=== PATIENT | female | born 1980 ===

== ENCOUNTER 2017-04-12 10:18 | Emergency (ER) | payer OTHER ==
[2017-04-12 10:21] VITALS: BMI 23.4
[2017-04-12 10:23] VITALS: RESP 17; TEMP 98.6; O2SAT 99
--- NOTE | 2017-04-12 10:36 | ED PDOC ---
HPI: Female Pain Time Seen by Provider: 04/12/17 10:34 Chief Complaint (Nursing): Female Genitourinary Chief Complaint (Provider): vaginal pain History Per: Patient Additional Complaint(s): 37 year old female presents to ED with painful cyst to vaginal region x 1 week. Patient was seen at [facility] 4 days ago and was started on ampicillin but symptoms have not improved. Patient denies fever or chills. She has had mild drainage from affected area. Ibuprofen has not helped the pain. Patient has history of bartholin's abscess and has had I&D in the past. Past Medical History Reviewed: Historical Data, Nursing Documentation, Vital Signs Vital Signs: Last Vital Signs Temp 98.6 F 04/12/17 10:20 Pulse 86 04/12/17 10:20 Resp 17 04/12/17 10:20 BP 132/73 04/12/17 10:20 Pulse Ox 99 04/12/17 10:20 - Medical History PMH: No Chronic Diseases - Surgical History Other surgeries: bartholin's cyst marsupialization - Family History Family History: States: No Known Family Hx - Living Arrangements Living Arrangements: With Family - Social History Current smoker - smoking cessation education provided: No Alcohol: None Drugs: Denies - Home Medications Home Medications: Ambulatory Orders Medication Instructions Recorded Metronidazole [Flagyl] 500 mg PO TID #30 tab 04/12/17 traMADol [Ultram] 50 mg PO TID PRN #15 tab 04/12/17 - Allergies Allergies/Adverse Reactions: Allergies Allergy/AdvReac Type Severity Reaction Status Date / Time No Known Allergies Allergy Verified 04/12/17 10:33 Review of Systems ROS Statement: Except As Marked, All Systems Reviewed And Found Negative Constitutional: Negative for: Fever Gastrointestinal: Negative for: Abdominal Pain Genitourinary Female: Positive for: Other (bartholin's abscess). Negative for: Dysuria, Vaginal Discharge, Vaginal Bleeding Physical Exam - Reviewed Nursing Documentation Reviewed: Yes Vital Signs Reviewed: Yes - Physical Exam Appears: Positive for: Well, Non-toxic, No Acute Distress Skin: Negative for: Rash Eye Exam: Positive for: Normal appearance Pelvic Exam: Positive for: Other (bartholin's abscess noted to right vulva, moderate erythema and tenderness to palpation with no active bleeding or drainage) Extremity: Positive for: Normal ROM Neurologic/Psych: Positive for: Alert, Oriented - Laboratory Results Urine POC: Negative Urine dip results: Positive for: Blood (small). Negative for: Leukocyte Esterase, Nitrate, Ketones, Glucose, Bilirubin, Protein - ECG O2 Sat by Pulse Oximetry: 99 Pulse Ox Interpretation: Normal Medical Decision Making Medical Decision Making: Impression: Bartholin's abscess Case was d/w time study statistician provider relations coordinator, Dr. De Los Santos who will come to ED for I&D. I&D performed at bedside by Dr. De Los Santos and word catheter was inserted. As per Dr. De Los Santos, patient should keep word catheter in place for 4-[address] De Los Santos. patient was given rx flagyl and instructed to stop taking ampicillin. Rx tramadol given for pain. Patient was instructed to follow up at her clinic. Disposition - Clinical Impression Clinical Impression: Bartholin's gland abscess - Patient ED Disposition Is Patient to be Admitted: No Counseled Patient/Family Regarding: Diagnosis, Need For Followup, Rx Given - Disposition Referrals: [facility] [Outside] Disposition: Routine/Home Disposition Time: 13:16 Condition: STABLE Additional Instructions: Stop taking ampicillin and continue your antibiotics. Take prescription pain medicines as directed. Follow up in 4-6 weeks with [facility]. Do not have catheter removed before 4-6 weeks. Prescriptions: Metronidazole [Flagyl] 500 mg PO TID #30 tab traMADol [Ultram] 50 mg PO TID PRN #15 tab PRN Reason: Pain, Moderate (4-7) Instructions: Bartholin Cyst (ED), Incision and Drainage (ED) Forms: [employer] (Albanian) Print Language: CENTRAL AFRICAN
[2017-04-12] MEDS ORDERED: Lidocaine 1% w Epi 1:100,000 Inj INJ STA (10:57)
[2017-04-12] MEDS ORDERED: Lidocaine 1% Inj (20ml) IJ STA (11:22)
[2017-04-12] MEDS ORDERED: Lidocaine 1% Inj (20ml) ONE (11:22)
[2017-04-12] MEDS ORDERED: Povidone Iodine Topical 10% Sol ONE (11:26)
[2017-04-12 13:48] VITALS: BP 109/68; PULSE 81
--- NOTE | 2017-04-12 16:49 | CP.PCM.CON ---
History of Present Illness - History of Present Illness History of Present Illness: patient is a 37-year-old 1 para 1 with an LMP of 03/19/2017 who presents to the emergency departme with complaints of right-sided labial pain and increased swelling. Patient states she presented last week to her [facility] [place] with complaints of labial swelling and it was incised and drained she stated she received the swelling increased further inside than prior with further pain when she presented to the office for further evaluation they advised her further management. She denies prior episodes of labial swelling or infections. Past OB history: delivery 1 at term past medical history denies Past surgical history denies Medications: Oral contraceptive patient unsure of name: Ampicillin 500 mg by mouth twice a day which; ibuprofen 600 one by mouth every 6 Social history patient denies tobacco alcohol or illicit drug abuse. Review of Systems - Constitutional Constitutional: absent: Excessive Sweating, Fatigue, Fever, Headache - Cardiovascular Cardiovascular: absent: Chest Pain, Dyspnea - Respiratory Respiratory: absent: Dyspnea on Exertion - Gastrointestinal Gastrointestinal: absent: Abdominal Pain, Bloating - Reproductive: Female Reproductive:Female: absent: Cycle Variable Past Patient History - Past Social History Alcohol: None Drugs: Denies - PSYCHIATRIC Hx Substance Use: No - SURGICAL HISTORY Hx Surgeries: Yes Hx Section: Yes - ANESTHESIA Hx Anesthesia: Yes Hx Anesthesia Reactions: No Meds Home Medications: Home Medication List Medication Instructions Recorded Confirmed Type Metronidazole [Flagyl] 500 mg PO TID #30 tab 04/12/17 Rx traMADol [Ultram] 50 mg PO TID PRN #15 tab 04/12/17 Rx Allergies/Adverse Reactions: Allergies Allergy/AdvReac Type Severity Reaction Status Date / Time No Known Allergies Allergy Verified 04/12/17 10:33 Physical Exam - Head Exam Head Exam: ATRAUMATIC, NORMOCEPHALIC - Respiratory Exam Respiratory Exam: NORMAL BREATHING PATTERN - Cardiovascular Exam Cardiovascular Exam: REGULAR RHYTHM - GI/Abdominal Exam GI & Abdominal Exam: Normal Bowel Sounds. absent: Distended, Guarding, Rebound - Exam External exam: Swelling (Rt labial swelling, induration and fluctuance) Results - Vital Signs Recent Vital Signs: Last Vital Signs Temp 98.6 F 04/12/17 10:20 Pulse 81 04/12/17 13:46 Resp 17 04/12/17 10:20 BP 109/68 04/12/17 13:46 Pulse Ox 99 10/19/17 13:26 Assessment & Plan - Assessment and Plan (Free Text) Assessment: I: Right Bartholin's abscess P: Informed consent was obtained for incision and drainage and placement of Word Patient was prepped and draped in the routine sterile fa and 3 mL of 1% local local lidocaine were inj posterior area of the labia minora Bartholin's abscess. The incision was then made with an 11 blade. In a yellow greenish purulent foul-sme pus was expressed full no further pus could be expressed this was followed by placement of the INFLATED WITH % ML of normal saline Patient was advised to do sitz bath 3 times a day. Follow up in her clinic 4-6 weeks.f Patient advised optimal removal would be in 6 weeks. Patient advised to f/u in office or return to ED if she develops fever, pain or increase in size occurs.
== END 2017-04-12 13:43 | disposition home or self-care (01) ==
LOC: H.ER 10:18
DX: N75.1 Abscess of Bartholin's gland (principal)

== ENCOUNTER 2017-05-24 09:20 | Emergency (ER) | payer OTHER ==
[2017-05-24 09:23] VITALS: BMI 25.2
[2017-05-24 09:24] VITALS: BP 111/69; PULSE 78; RESP 20; TEMP 96.4
[2017-05-24 09:53] VITALS: O2SAT 98
--- NOTE | 2017-05-24 09:58 | ED PDOC ---
HPI: General Adult Time Seen by Provider: 05/24/17 09:48 History Per: Patient (s/p I&D bartholin abscess 6 weeks ago with placement of [place] Cath for removal today.) Past Medical History Vital Signs: Last Vital Signs Temp 96.4 F L 05/24/17 09:24 Pulse 78 05/24/17 09:24 Resp 20 05/24/17 09:24 BP 111/69 05/24/17 09:24 Pulse Ox 98 05/24/17 09:48 - Medical History PMH: No Chronic Diseases - Family History Family History: States: Unknown Family Hx - Home Medications Home Medications: Ambulatory Orders Medication Instructions Recorded Metronidazole [Flagyl] 500 mg PO TID #30 tab 04/12/17 traMADol [Ultram] 50 mg PO TID PRN #15 tab 04/12/17 - Allergies Allergies/Adverse Reactions: Allergies Allergy/AdvReac Type Severity Reaction Status Date / Time No Known Allergies Allergy Verified 05/24/17 09:48 Review of Systems Constitutional: Negative for: Fever Gastrointestinal: Negative for: Abdominal Pain Genitourinary Female: Negative for: Vaginal Discharge, Vaginal Bleeding, Pelvic Pain Physical Exam - Physical Exam Appears: Positive for: Non-toxic, No Acute Distress Pelvic Exam: Positive for: Other (Catheter in place, remived, no bleeding or drainage.) - ECG O2 Sat by Pulse Oximetry: 98 Disposition - Clinical Impression Clinical Impression: Wound check, abscess - Patient ED Disposition Is Patient to be Admitted: No Counseled Patient/Family Regarding: Diagnosis, Need For Followup - Disposition [facility]errals[facility] [Outside] Disposition: Routine/Home Disposition Time: 09:58 Condition: FAIR Instructions: Chronic Wound Care (ED) Print Language: PITCAIRN ISLANDER
== END 2017-05-24 10:08 | disposition home or self-care (01) ==
LOC: H.ER 09:20
DX: Z46.6 Encounter for fitting and adjustment of urinary device (principal)

== ENCOUNTER 2017-09-17 09:04 | Emergency (ER) | payer SELFPAY ==
[2017-09-17 09:05] VITALS: BMI 25.2
[2017-09-17 09:09] VITALS: BP 121/81; PULSE 75; RESP 17; TEMP 98.8; O2SAT 99
[2017-09-17 12:26] LABS: SQUAMOUS EPITHIAL 5 /hpf (0-5); URINE BACTERIA RARE (<OCC); URINE BILIRUBIN NEGATIVE (NEGATIVE); URINE BLOOD NEGATIVE (NEGATIVE); URINE CLARITY SLIGHTY-CLOUDY (Clear); URINE COLOR YELLOW (YELLOW); URINE GLUCOSE (UA) NEG (Normal); URINE LEUKOCYTE ESTERASE NEG Leu/uL (Negative); URINE PROTEIN NEGATIVE (NEGATIVE); URINE UROBILINOGEN 0.2-1.0 mg/dL (0.2-1.0)
--- NOTE | 2017-09-17 12:57 | ED PDOC ---
HPI: Female Pain Time Seen by Provider: 09/17/17 09:23 Chief Complaint (Nursing): Female Genitourinary Chief Complaint (Provider): Female Genitourinary History Per: Patient History/Exam Limitations: no limitations Additional Complaint(s): 37 y/o female with past medical history of barthollin cyst presents to the ED complaining of vaginal pain and swelling since Sunday. Reports that she noted a lump to right labia on Sunday. Denies fever, vomiting or any further medical complaints. Past Medical History Reviewed: Historical Data, Nursing Documentation, Vital Signs Vital Signs: Last Vital Signs Temp 98.8 F 09/17/17 09:07 Pulse 75 09/17/17 09:07 Resp 17 09/17/17 09:07 BP 121/81 09/17/17 09:07 Pulse Ox 99 09/17/17 09:07 - Medical History Other PMH: Barthollin cyst - Surgical History Surgical History: - Family History Family History: States: Unknown Family Hx - Social History Current smoker - smoking cessation education provided: No Alcohol: None Drugs: Denies - Home Medications Home Medications: Ambulatory Orders Medication Instructions Recorded No Known Home Med 09/17/17 - Allergies Allergies/Adverse Reactions: Allergies Allergy/AdvReac Type Severity Reaction Status Date / Time No Known Allergies Allergy Verified 09/17/17 09:34 Review of Systems ROS Statement: Except As Marked, All Systems Reviewed And Found Negative (As per HPI, otherwise negative) Constitutional: Negative for: Fever Gastrointestinal: Negative for: Vomiting Genitourinary Female: Positive for: Other (Vaginal pain and swelling) Physical Exam - Reviewed Nursing Documentation Reviewed: Yes Vital Signs Reviewed: Yes - Physical Exam Appears: Positive for: Non-toxic, No Acute Distress Head Exam: Positive for: ATRAUMATIC, NORMAL INSPECTION, NORMOCEPHALIC Skin: Positive for: Normal Color, Warm, Dry Eye Exam: Positive for: EOMI, Normal appearance, PERRL ENT: Positive for: Normal ENT Inspection Neck: Positive for: Normal, Painless ROM, Supple Cardiovascular/Chest: Positive for: Regular Rate, Rhythm. Negative for: Murmur Respiratory: Positive for: Normal Breath Sounds. Negative for: Accessory Muscle Use, Respiratory Distress Gastrointestinal/Abdominal: Positive for: Normal Exam, Bowel Sounds, Soft. Negative for: Tenderness Back: Positive for: Normal Inspection Extremity: Positive for: Normal ROM. 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 Moreno (honing machine try out setter roofing subcontractor) was called for consult on barthollin cyst 14:00 --Dr. Moreno called back and will come down to see patient at some point. 14:40 --Dr. Moreno currently at bedside. Scribe Attestation: Documented by Jaquelin Jeffries acting as a scribe for Kena Begum MD. Scribe Attestation: All medical record entries made by the Scribe were at my direction and personally dictated by me. I have reviewed the chart and agree that the record accurately reflects my personal performance of the history, physical exam, medical decision making, and the department course for this patient. I have also personally directed, reviewed, and agree with the discharge instructions and disposition. Disposition - Disposition Forms: [employer] (Chilean)
--- NOTE | 2017-09-17 16:29 | CP.PCM.CON ---
History of Present Illness - History of Present Illness History of Present Illness: Patient is a 37 yo presents with recurrence of possible Bartholian cyst. Patient reports for past 5 days the right vaginal cyst has been getting bigger and starting to become more uncomfortable, does not appreciate any vaginal drainage, no bleeding, does not want pain medication, denies fever, LOC, difficulty breathing. Patient has had Bartholian cyst multiple time in that spot and it has been drained at least four times. Review of Systems - Respiratory Respiratory: As Per HPI - Gastrointestinal Gastrointestinal: As Per HPI - Genitourinary Genitourinary: As Per HPI - Reproductive: Female Reproductive:Female: As Per HPI - Musculoskeletal Musculoskeletal: As Per HPI Past Patient History - Past Social History Alcohol: None Drugs: Denies - PSYCHIATRIC Hx Substance Use: No - SURGICAL HISTORY Hx Surgeries: Yes Hx Section: Yes - ANESTHESIA Hx Anesthesia: Yes Hx Anesthesia Reactions: No Meds Allergies/Adverse Reactions: Allergies Allergy/AdvReac Type Severity Reaction Status Date / Time No Known Allergies Allergy Verified 09/17/17 09:34 Physical Exam - Head Exam Head Exam: ATRAUMATIC - Eye Exam Eye Exam: Normal appearance - Respiratory Exam Respiratory Exam: NORMAL BREATHING PATTERN - Cardiovascular Exam Cardiovascular Exam: REGULAR RHYTHM - GI/Abdominal Exam GI & Abdominal Exam: Normal Bowel Sounds - Exam Additional comments: right bartholian cyst noted about 2cm, not indurated, slightly painful to touch , no drainage noted - Extremities Exam Extremities exam: Positive for: normal inspection - Neurological Exam Neurological exam: Oriented x3 - Skin Skin Exam: Normal Color, Warm Results - Vital Signs Recent Vital Signs: Last Vital Signs Temp 98.8 F 09/17/17 09:07 Pulse 75 09/17/17 09:07 Resp 17 09/17/17 09:07 BP 121/81 09/17/17 09:07 Pulse Ox 99 09/17/17 14:36 - Labs Labs: Laboratory Results - last 24 hr 09/17/17 11:55 Urine Color Yellow Urine Clarity Slighty-cloudy Urine pH 6.0 Ur Specific [place] 1.024 Urine Protein Negative Urine Glucose (UA) Neg Urine Ketones Negative Urine Blood Negative Urine Nitrate Negative Urine Bilirubin Negative Urine Urobilinogen 0.2-1.0 Ur Leukocyte Esterase Neg Urine RBC (Auto) 3 Urine Microscopic WBC 1 Ur Squamous Epith Cells 5 Urine Bacteria Rare Assessment & Plan - Assessment and Plan (Free Text) Assessment: A/P 37 yo with Bartholian abscess 1. Patient has a recurrent Bartholian abscess, on exam abscess is fluctuant and not ready to be drained. Patient is uncomfortable slightly, but not enough to require pain medication. Discussed with patient instead doing sitz baths and warm compresses multiple times a day to see if symptoms resolve. Patient agreed in the past many times that would resolve abscess 2. Patient does not want any pain medication at this time 3. Instructed patient to follow up outpatient in the office if abscess does not resolve or gets larger and much more painful - Date & Time Date: 09/17/17 Time: 16:29
== END 2017-09-17 13:15 | disposition home or self-care (01) ==
LOC: H.ER 09:04
DX: N89.9 Noninflammatory disorder of vagina, unspecified (principal); N75.1 Abscess of Bartholin's gland

== ENCOUNTER 2018-02-01 09:16 | Emergency (ER) | payer SELFPAY ==
[2018-02-01 09:29] VITALS: BMI 26.0
[2018-02-01] MEDS ORDERED: Lidocaine/Epi 1% 1:100000 20 ML IJ STA (11:26)
--- NOTE | 2018-02-01 11:43 | ED PDOC ---
HPI: Female Pain Time Seen by Provider: 02/01/18 09:49 Chief Complaint (Nursing): Female Genitourinary Chief Complaint (Provider): Vaginal Pain History Per: Patient History/Exam Limitations: no limitations Onset/Duration Of Symptoms: Days (8x) Current Symptoms Are (Timing): Still Present Quality Of Discomfort: "Pain" Associated Symptoms: denies: Fever, Chills Additional Complaint(s): 37 year old female presents to the ED for an evaluation of vaginal discomfort onset for 8 days. Reports of possible vaginal infection that has become worse and her vagina feels swollen. Denies fever, chills, dysuria, hematuria, vaginal discharge. Of note: Patient had a Bartholin cyst and a Word catheter was placed in July. She returned for removal, however no follow-up. PMD: No Family Provider Abnormal Vaginal Bleeding: No Past Medical History Reviewed: Historical Data, Nursing Documentation, Vital Signs Vital Signs: Last Vital Signs Temp 98.8 F 02/01/18 09:27 Pulse 75 02/01/18 09:27 Resp 18 02/01/18 09:27 BP 122/77 02/01/18 09:27 Pulse Ox 99 02/01/18 09:27 - Medical History PMH: No Chronic Diseases - Surgical History Surgical History: - Family History Family History: States: Unknown Family Hx - Home Medications Home Medications: Ambulatory Orders Medication Instructions Recorded Naproxen [Naprosyn] 500 mg PO BID PRN #20 tablet 02/01/18 - Allergies Allergies/Adverse Reactions: Allergies Allergy/AdvReac Type Severity Reaction Status Date / Time No Known Allergies Allergy Verified 09/17/17 09:34 Review of Systems ROS Statement: Except As Marked, All Systems Reviewed And Found Negative Constitutional: Negative for: Fever, Chills Genitourinary Female: Positive for: Pelvic Pain, Other (infection). 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 Negative for: External Exam Normal (right labia moderately swollen, fluctuant, 2 bulges: one is 1.5cm midlevel and another is 0.5cm where the first catheter placed) Neurologic/Psych: Positive for: Alert, Oriented (x3) - ECG O2 Sat by Pulse Oximetry: 99 (RA) Pulse Ox Interpretation: Normal Medical Decision Making Medical Decision Making: Time: 1000 Initial Impression: vaginal infection Initial Plan: --ED Urine --ED Urine Dipstick --Lodocaine/ Epinephrine 10ml --Reevaluation Time: [address] OB fellow Dr[address] Lange who is working with Dr. Whelan. Dr. Lange will exam patient and do a work-up for bartholins. Scribe Attestation: Documented by Shania Marroquin, acting as a scribe for Abby Gerard MD Provider Scribe Attestation: All medical record entries made by the Scribe were at my direction and personally dictated by me. I have reviewed the chart and agree that the record accurately reflects my personal performance of the history, physical exam, medical decision making, and the department course for this patient. I have also personally directed, reviewed, and agree with the discharge instructions and disposition. Disposition - Clinical Impression Clinical Impression: Bartholin's gland abscess - Patient ED Disposition Is Patient to be Admitted: No Doctor Will See Patient In The: Office Counseled Patient/Family Regarding: Diagnosis, Need For Followup, Rx Given - Disposition [facility]errals: [facility] [Outside] (Patient should be seen in the women's health clinic in one week.) Disposition: Routine/Home Disposition Time: 13:09 Condition: STABLE Prescriptions: Naproxen [Naprosyn] 500 mg PO BID PRN #20 tablet PRN Reason: Pain, Moderate (4-7) Instructions: Bartholin's Gland Cyst Forms: [employer] (Icelandic) Print Language: MALTESE - POA Present On Arrival: None
[2018-02-01] MEDS ORDERED: Lidocaine Hydrochloride 0 ML INJ ONE (11:55)
[2018-02-01] MEDS ORDERED: Lidocaine Hydrochloride 1% 10 ML ONE (12:15)
[2018-02-01 14:00] VITALS: BP 128/71; PULSE 73; RESP 15; TEMP 98.2; O2SAT 100
== END 2018-02-01 14:00 | disposition home or self-care (01) ==
LOC: H.ER 09:16
DX: N75.1 Abscess of Bartholin's gland (principal)
CPT/HCPCS: 81025; 96372; 99283; J1885